=== PATIENT | female | born 1990 | race Hispanic/Latino ===

== ENCOUNTER 2020-09-02 12:48 | Outpatient (CLI) | payer BC | END 2020-09-02 12:49 | disposition home or self-care (01) | LOC: CSHULT 12:48 | PROVIDERS: ATTEND Family Medicine | DX: N91.2 Amenorrhea, unspecified (principal); N83.8 Other noninflammatory disorders of ovary, fallopian tube and broad ligament | CPT/HCPCS: 76856 ==

== ENCOUNTER 2021-03-12 15:13 | Outpatient (CLI) | payer BC | END 2021-03-12 15:14 | disposition home or self-care (01) | LOC: CSHLAB 15:13 | PROVIDERS: ATTEND Obstetrics & Gynecology | DX: Z01.812 Encounter for preprocedural laboratory examination (principal); Z20.822 Contact with and (suspected) exposure to COVID-19 | CPT/HCPCS: 84703; 85027; 86850; 86900; 86901; U0003; U0005 ==

== ENCOUNTER 2021-03-17 11:26 | Day surgery (SDC) | payer BC ==
[2021-03-12 16:38] LABS: BHCG - Serum Negative (NEGATIVE); Pregs Control Background? CLEAR/WHITE (CLR/WHITE); Pregs Control Bar Appear? YES (CONTROL BAR)
[2021-03-12 16:52] LABS: Hemoglobin 13.7 g/dL (12.0-15.5); Mean Corpuscular HGB CONC 32.9 g/dL (32.0-36.0); Mean Corpuscular Volume 82.2 fl (81.6-98.3); Mean Platelet Volume 12.8 fl (7.4-10.4); Platelet Count 232 10x3/uL (150-450); RBC Distribution Width 12.6 % (11.5-14.5); Red Blood Cell (RBC) Count 5.07 10x6/uL (3.90-5.03)
[2021-03-13 16:39] LABS: SARS-CoV-2 PCR by NAA Not Detected (NotDetected)
[2021-03-15 16:06] VITALS: BMI 29.9
[2021-03-17] MEDS ORDERED: Gabapentin 300 MG CAP ONE (11:48)
[2021-03-17] MEDS ORDERED: Lidocaine 1% MPF 2 ML VIAL ONE (11:49)
[2021-03-17] MEDS ORDERED: CeleCOXIB 100 MG CAP ONE (11:49)
[2021-03-17] MEDS ORDERED: Famotidine/PF 20 mg/2ml Vial ONE (11:50)
[2021-03-17] MEDS ORDERED: EPINEPHrine 1 MG/ML AMP ONE (12:38)
[2021-03-17] MEDS ORDERED: Bupivacaine PF 0.5% 30 ML VIAL ONE (12:38)
[2021-03-17] MEDS ORDERED: PROPOFOL 20 ML ONE (13:23)
[2021-03-17] MEDS ORDERED: Midazolam HCl 2 mg/2 ml Vial ONE (13:24)
[2021-03-17] MEDS ORDERED: Fentanyl 100 MCG/2 ML VIAL ONE (13:24)
[2021-03-17] MEDS ORDERED: Dexamethasone 4 mg/ml Vial ONE (13:25)
[2021-03-17] MEDS ORDERED: Lidocaine 1% PF 5 ML VIAL ONE (13:25)
[2021-03-17] MEDS ORDERED: Rocuronium Bromide 10 MG/ML (10ML VIAL) ONE (13:25)
[2021-03-17] MEDS ORDERED: Ondansetron PF 4 MG/2 ML Vial ONE ×2 (13:25→16:59)
[2021-03-17] MEDS ORDERED: PHENYLEPHRINE-NS 100 MCG/ML 10 ML SYRINGE ONE (14:07)
[2021-03-17] MEDS ORDERED: Glycopyrrolate 0.2 MG/ML 5 ML SYRINGE ONE (15:11)
== END 2021-03-17 17:30 | disposition home or self-care (01) ==
LOC: CSHSDC 11:26
PROVIDERS: ATTEND Obstetrics & Gynecology
PROC: 0UB14ZZ Excision of Left Ovary, Percutaneous Endoscopic Approach (ICD-10-PCS; principal; 2021-03-17)
DX: D27.1 Benign neoplasm of left ovary (principal); E28.2 Polycystic ovarian syndrome; Z79.3 Long term (current) use of hormonal contraceptives; Z90.721 Acquired absence of ovaries, unilateral
CPT/HCPCS: 84703; 85027; 86850; 86900; 86901; 88307; J0171; J0690; J1100; J2250; J2405; J2704; J3010; S0020; S0028; U0003; U0005